=== PATIENT | female | born 1960 | race Caucasian/White ===

== ENCOUNTER 2018-03-26 07:41 | Emergency (ER) | payer OTHER ==
[2018-03-26] MEDS ORDERED: LIDOCAINE 1% 2 ML VIAL INJ ONE (07:55)
[2018-03-26 08:10] VITALS: TEMP 98.5; O2SAT 96
--- NOTE | 2018-03-26 08:10 | ED.PDOC ---
History of Present Illness - General Chief Complaint: Head Injury Stated Complaint: Fishhooks to R ear and scalp Time Seen by Provider: 03/26/18 08:07 Source: patient Exam Limitations: no limitations - History of Present Illness Timing/Duration: 1 hour - was casting his lure into water when it struck patient's R ear and became lodged Severity: mild Improving Factors: nothing Worsening Factors: movement Associated Symptoms: denies symptoms Allergies/Adverse Reactions: Allergies Sulfa Antibiotics Allergy (Intermediate, Verified 03/26/18 08:11) Metoclopramide [From Reglan] Allergy (Mild, Verified 03/26/18 08:11) Home Medications: Ambulatory Orders Cephalexin 500 mg PO TID #14 cap 03/26/18 Review of Systems - Review of Systems Constitutional: States: no symptoms reported EENTM: States: ear pain Respiratory: States: no symptoms reported Cardiology: States: no symptoms reported Gastrointestinal/Abdominal: States: no symptoms reported Musculoskeletal: States: no symptoms reported Skin: States: see HPI Neurological: States: no symptoms reported Endocrine: States: no symptoms reported Past Medical History (General) - Patient Medical History Hx Diabetes: Yes Physical Exam - Physical Exam General Appearance: Alert, No apparent distress Eye Exam: bilateral normal Ears, Nose, Throat: hearing grossly normal, other - has fishhook in R external ear at pinna , skin PW not thru cartiledge. Has second hook in scalp behind R ear from same lure Neck: non-tender, full range of motion, supple Procedures - Foreign Body Removal Foreign Body Removal: fish hook - 1% lidocaine local with hooks cut from lure with wirecutters and hooks removed with needlenose pliers Departure - Departure Clinical Impression: fishhook injury to R ear Disposition: Discharge to Home or Self Care Condition: Excellent Departure Forms: ED Discharge - Pt. Copy, Patient Portal Self Enrollment Referrals: GIO WHITE [Primary Care Provider] - 1-2 Weeks Prescriptions: Cephalexin 500 mg PO TID #14 cap Home Medications: Ambulatory Orders Cephalexin 500 mg PO TID #14 cap 03/26/18
[2018-03-26] MEDS ORDERED: TETANUS,DIPHTHERIA,PERTUSSIS 1 EA SYG IM ONE (08:20)
[2018-03-26 08:46] VITALS: BP 148/78
== END 2018-03-26 08:50 | disposition home or self-care (01) ==
LOC: ER 07:41
DX: S00.451A Superficial foreign body of right ear, initial encounter (principal); S00.05XA Superficial foreign body of scalp, initial encounter; W45.8XXA Other foreign body or object entering through skin, initial encounter; Z23 Encounter for immunization; Z88.2 Allergy status to sulfonamides; Z88.8 Allergy status to other drugs, medicaments and biological substances; Y93.89 Activity, other specified; Y92.9 Unspecified place or not applicable